=== PATIENT | female | born 2000 | race Caucasian/White ===

== ENCOUNTER 2019-08-06 19:34 | Emergency (ER) | payer OTHER ==
[~2019-08-06] VITALS: Ht 157.5 cm; Wt 57.0 kg
--- NOTE | 2019-08-06 19:53 | NUR ---
DEBORAH, MED STUDENT, BS FOR EXAM. PT'S 2 FEMALE FRIENDS IN ROOM. PT A&OX4, RESP EVEN & UNLABORED, SPEECH CLEAR, SKIN WNL. PT STATES SHE FELT LIGHTHEADED & DIZZY, LEANED OVER THE GROCERY CART, WOKE UP ON THE FLOOR. STATES SHE WOKE W/ A SORE THROAT, FEVER 100.4, NO MED TAKEN FOR SX.
[2019-08-06] MEDS ORDERED: TOPIRAMATE (19:56)
[2019-08-06] MEDS ORDERED: PHENTERMINE (19:56)
[2019-08-06] MEDS ORDERED: NORE1CAP PO (19:57)
--- NOTE | 2019-08-06 20:16 | NUR ---
PT HAVING ANIMATED CONVERSATION WITH HER GIRLFRIENDS.
--- NOTE | 2019-08-06 20:33 | NUR ---
ct pending beta.
[2019-08-06 20:42] LABS: BASOPHILS # (AUTO) 0.01 x10^3/uL (0-0.3); BASOPHILS % (AUTO) 0 % (0-1); EOSINOPHILS # (AUTO) 0.09 x10^3/uL (0-0.8); EOSINOPHILS % (AUTO) 1 % (1-7); LYMPHOCYTES # (AUTO) 1.07 x10^3/uL (1-6.1); LYMPHOCYTES % (AUTO) 7 % (22-44); MD NO; MEAN CORPUSCULAR HEMOGLOBIN 31.5 pg (27.0-34.8); MEAN CORPUSCULAR HGB CONC 33.1 g/dL (32.4-35.8); MEAN CORPUSCULAR VOLUME 95.2 fL (80-100); MEAN PLATELET VOLUME 7.2 fL (7.4-10.4); MONOCYTES # (AUTO) 0.64 x10^3/uL (0-1.4); MONOCYTES % (AUTO) 4 % (2-9); NEUTROPHILS # (AUTO) 12.98 x10^3/uL (1.8-8.0); NEUTROPHILS % (AUTO) 88 % (42-75); PLATELET COUNT 292 x10^3/uL (130-400); RED BLOOD COUNT 4.53 x10^6/uL (3.82-5.3); RED CELL DISTRIBUTION WIDTH 12.8 % (9.6-15.2)
[2019-08-06 20:51] LABS: ALBUMIN 3.6 g/dL (3.4-5.0); ANION GAP 5 mmol/L (5-15); CALCIUM 8.8 mg/dL (8.5-10.1); CHLORIDE 109 mmol/L (98-107); CREATININE 0.71 mg/dL (0.55-1.02)
[2019-08-06 20:58] LABS: RAPID INFLUENZA A Negative (Negative); RAPID INFLUENZA B Negative (Negative)
[2019-08-06 21:01] LABS: T4 (THYROXINE) 15.5 mcg/dL (4.8-13.9)
[2019-08-06 21:28] LABS: CULTURE INDICATED? YES; MICROSCOPIC INDICATED
[2019-08-06 21:53] VITALS: BP 141/89
--- NOTE | 2019-08-06 21:57 | NUR ---
C/O WORSENING HENNING PAIN.
[2019-08-06] MEDS ORDERED: IBUPROFEN 600 MG TABLET PO ONE (22:00)
--- NOTE | 2019-08-06 22:06 | NUR ---
PT CONTINUING TO HAVE ANIMATED CONVERSATION WITH HER GIRLFRIENDS.
[2019-08-06] MEDS ORDERED: IBUPROFEN 600 MG TABLET ONE (22:12)
== END 2019-08-06 22:30 | disposition home or self-care (01) ==
LOC: ED 21:45
DX: N30.00 Acute cystitis without hematuria (principal); R55 Syncope and collapse; R51 Headache
CPT/HCPCS: 36415; 70450; 80048; 81001; 82040; 84436; 84443; 84703; 85025; 87086; 87400; 93005; 99284

== ENCOUNTER 2020-06-22 12:40 | Emergency (ER) | payer OTHER ==
[~2020-06-22] VITALS: Ht 160 cm; Wt 60.6 kg
[~2020-06-22 12:40] MED LIST: NORE1CAP PO; PHENTERMINE; TOPIRAMATE
[2020-06-22 13:55] LABS: BASOPHILS # (AUTO) 0.01 x10^3/uL (0-0.1); BASOPHILS % (AUTO) 0 % (0-1); EOSINOPHILS # (AUTO) 0.04 x10^3/uL (0-0.4); EOSINOPHILS % (AUTO) 1 % (1-7); LYMPHOCYTES # (AUTO) 2.46 x10^3/uL (1-3.4); LYMPHOCYTES % (AUTO) 35 % (22-44); MD NO; MEAN CORPUSCULAR HEMOGLOBIN 31.7 pg (27.0-34.8); MEAN CORPUSCULAR HGB CONC 33.1 g/dL (32.4-35.8); MEAN CORPUSCULAR VOLUME 95.9 fL (80-100); MEAN PLATELET VOLUME 7.2 fL (7.4-10.4); MONOCYTES # (AUTO) 0.35 x10^3/uL (0.2-0.8); MONOCYTES % (AUTO) 5 % (2-9); NEUTROPHILS % (AUTO) 60 % (42-75); PLATELET COUNT 343 x10^3/uL (130-400); RED BLOOD COUNT 4.44 x10^6/uL (3.82-5.3); RED CELL DISTRIBUTION WIDTH 12.7 % (9.6-15.2)
[2020-06-22 14:07] LABS: ALBUMIN 3.8 g/dL (3.4-5.0); ANION GAP 6 mmol/L (5-15); CALCIUM 9.1 mg/dL (8.5-10.1); CHLORIDE 109 mmol/L (98-107); CREATININE 0.82 mg/dL (0.55-1.02); T4 (THYROXINE) 14.8 mcg/dL (4.8-13.9)
[2020-06-22 14:09] VITALS: BP 130/77
--- NOTE | 2020-06-22 14:10 | NUR ---
TASK RN: PT RESTING ON [employer], PLAYING ON CELL PHONE. NADN. PARRA. NO COMPLAINTS AT THIS TIME.
--- NOTE | 2020-06-22 14:49 | NUR ---
TASK RN: BEDSIDE REPORT TO INNA BAH.
--- NOTE | 2020-06-22 15:11 | NUR ---
Patient/Caregiver given discharge instructions and they have confirmed that they understand the instructions. Patient ambulatory with steady gait.
== END 2020-06-22 15:22 | disposition home or self-care (01) ==
LOC: ED 14:44
DX: F41.1 Generalized anxiety disorder (principal); F32.9 Major depressive disorder, single episode, unspecified
CPT/HCPCS: 36415; 71045; 80048; 82040; 84436; 84443; 85025; 93005; 99285; Q0177